=== PATIENT | male | born 1945 | race Caucasian/White ===

== ENCOUNTER 2018-08-11 16:04 | Inpatient (IN) | payer OTHER ==
[~2018-08-11] VITALS: Ht 170.2 cm; Wt 58.6 kg
[2018-08-11 20:01] LABS: CALCIUM 8.8 mg/dL (8.5-10.1); CARBON DIOXIDE 28.6 mmol/L (21-32); CHLORIDE SERUM 93 mmol/L (98-107); CREATININE SERUM 0.9 mg/dL (0.7-1.3); GLUCOSE SERUM 123 mg/dL (74-106); POTASSIUM SERUM 4.3 mmol/L (3.5-5.1); SODIUM SERUM 131 mmol/L (136-145)
[2018-08-11 20:06] LABS: ALBUMIN 3.7 g/dL (3.4-5.0); ALKALINE PHOSPHATASE 78 U/L (46-116); ALT/SGPT 21 U/L (16-63); AST/SGOT 21 U/L (15-37)
[2018-08-11 20:08] LABS: BASOPHIL % 0.2 % (0-2); PLATELET COUNT 240 x10^3mcL (130-400)
[2018-08-11 20:19] LABS: BILIRUBIN TOTAL 0.5 mg/dL (0.20-1.00); TOTAL PROTEIN, SERUM 7.4 g/dL (6.4-8.2)
[2018-08-12] VITALS (7 sets, daily range): BP systolic 138–180; BP diastolic 79–100
[2018-08-12 04:27] LABS: CALCIUM 8.5 mg/dL (8.5-10.1); CARBON DIOXIDE 26.2 mmol/L (21-32); CHLORIDE SERUM 93 mmol/L (98-107); GLUCOSE SERUM 197 mg/dL (74-106); PHOSPHOROUS 3.1 mg/dL (2.5-4.9); POTASSIUM SERUM 3.9 mmol/L (3.5-5.1); SODIUM SERUM 128 mmol/L (136-145)
[2018-08-13 06:06] VITALS: BP 149/89
[2018-08-13 07:04] LABS: PLATELET COUNT 220 x10^3mcL (130-400); RED CELL DISTRIBUTION WIDTH 14.1 % (11.5-14.5)
[2018-08-13 07:18] LABS: BASOPHIL % 0 % (0-2)
[2018-08-13 07:32] LABS: ALKALINE PHOSPHATASE 78 U/L (46-116); ALT/SGPT 20 U/L (16-63); AST/SGOT 30 U/L (15-37); BILIRUBIN TOTAL 0.76 mg/dL (0.20-1.00); CALCIUM 8.3 mg/dL (8.5-10.1); CHLORIDE SERUM 96 mmol/L (98-107); CREATININE SERUM 0.9 mg/dL (0.7-1.3); GLUCOSE SERUM 123 mg/dL (74-106); POTASSIUM SERUM 4.2 mmol/L (3.5-5.1); SODIUM SERUM 131 mmol/L (136-145); TOTAL PROTEIN, SERUM 6.8 g/dL (6.4-8.2)
[2018-08-13 07:36] LABS: ALBUMIN 3.2 g/dL (3.4-5.0)
[2018-08-13 10:03] VITALS: BP 128/66; BP 133/66
[2018-08-13 12:12] VITALS: BP 156/92
[2018-08-13 17:17] VITALS: BP 137/83
[2018-08-13 18:25] VITALS: BP 137/83
[2018-08-13] MEDS ORDERED: LOP50 PO (18:31)
[2018-08-13] MEDS ORDERED: PULMICORT0.5 MG/2 M NEB (18:31)
[2018-08-13] MEDS ORDERED: ASPIR 8181 MG PO (18:32)
[2018-08-13] MEDS ORDERED: PREMIERPRO SC (18:32)
[2018-08-13] MEDS ORDERED: PLA75 PO (18:32)
[2018-08-13] MEDS ORDERED: SOL40I IV (18:32)
[2018-08-13] MEDS ORDERED: ATROVENT H0.017 MG/1 (18:33)
[2018-08-13] MEDS ORDERED: IPRATROPIUM BROM3 M2 HHN (18:35)
[2018-08-13] MEDS ORDERED: LIPITOR40 MG PO (18:37)
== END 2018-08-13 20:48 | disposition short-term general hospital (02) | DRG 281 ==
LOC: ED 16:04 → DU 08-12 00:24
PROVIDERS: Emergency Medicine; Internal Medicine Nephrology; ADMIT Internal Medicine
DX: I21.9 Acute myocardial infarction, unspecified (principal); J44.1 Chronic obstructive pulmonary disease with (acute) exacerbation; J45.901 Unspecified asthma with (acute) exacerbation; E87.1 Hypo-osmolality and hyponatremia; I10 Essential (primary) hypertension; F17.210 Nicotine dependence, cigarettes, uncomplicated
CPT/HCPCS: 83880; 87804; 99406; J2920; J2930; J7620; J7626; Q0092